=== PATIENT | male | born 1985 | race Caucasian/White ===

== ENCOUNTER 2018-02-05 18:16 | Emergency (ER) | payer OTHER ==
[2018-02-05 18:33] VITALS: RESP 18
--- NOTE | 2018-02-05 18:51 | ED PDOC ---
HPI: Influenza Time Seen by Provider: 02/05/18 18:40 History Per: Patient Exam Limitations: no limitations Additional complaint(s):: 32 year old male presents to the ED with flu-like symptoms onset yesterday. Patient reports of fever, body ache, headache, cough, weakness and mild sore throat. He took 2 tablets of Motrin and Tylenol each every 3 hours without any relief. Otherwise, patient denies rash or abdominal pain. PMD: unknown provider Past Medical History Reviewed: Historical Data, Nursing Documentation, Vital Signs Vital Signs: Last Vital Signs Temp 100.7 F H 02/05/18 18:33 Pulse 97 H 02/05/18 18:33 Resp 18 02/05/18 18:33 BP 113/67 02/05/18 18:33 Pulse Ox 98 02/05/18 18:33 - Medical History PMH: No Chronic Diseases - Family History Family History: States: Unknown Family Hx - Home Medications Home Medications: Ambulatory Orders Medication Instructions Recorded Acetaminophen [Acetaminophen Extra 2 tab PO Q6 PRN #24 tablet 02/05/18 Strength] Ibuprofen [Motrin Tab] 800 mg PO Q8 PRN #21 tab 02/05/18 Oseltamivir Cap [Tamiflu] 75 mg PO BID #9 cap 02/05/18 - Allergies Allergies/Adverse Reactions: Allergies Allergy/AdvReac Type Severity Reaction Status Date / Time No Known Allergies Allergy Verified 02/05/18 18:50 Review of Systems ROS Statement: Except As Marked, All Systems Reviewed And Found Negative Constitutional: Positive for: Fever, Weakness, Other (body ache) ENT: Positive for: Throat Pain (mild) Respiratory: Positive for: Cough Neurological: Positive for: Headache Physical Exam - Reviewed Nursing Documentation Reviewed: Yes Vital Signs Reviewed: Yes - Physical Exam Appears: Positive for: Non-toxic, No Acute Distress Head Exam: Positive for: ATRAUMATIC, NORMAL INSPECTION, NORMOCEPHALIC Skin: Positive for: Normal Color, Warm, Dry Eye Exam: Positive for: Other (mild conjunctivitis to bilateral eyes) Neurologic/Psych: Positive for: Alert, Oriented (x3). Negative for: Motor/Sensory Deficits Medical Decision Making Medical Decision Making: Time: 1843 Initial plan: Tamiflu 75mg Acetaminophen 975mg Influenza A B Rapid strep Reevaluation ------- Scribe Attestation: Documented by Juan Lopez, acting as a scribe for Cal Rossa PA-C. Provider Scribe Attestation: All medical record entries made by the Scribe were at my direction and personally dictated by me. I have reviewed the chart and agree that the record accurately reflects my personal performance of the history, physical exam, medical decision making, and the department course for this patient. I have also personally directed, reviewed, and agree with the discharge instructions and disposition. - ECG O2 Sat by Pulse Oximetry: 98 (RA) Pulse Ox Interpretation: Normal - Progress ED Course And Treament: Patient refused fluids/rapid strep and flu test Tamiflu 75 mg x 1 dose Acetaminophen 975mg x 1 dose Toradol 30 mg IM x 1 dose Disposition - Clinical Impression Clinical Impression: Influenza-like symptoms - Patient ED Disposition Is Patient to be Admitted: No - Disposition Disposition: Routine/Home Disposition Time: 19:24 Condition: FAIR Prescriptions: Acetaminophen [Acetaminophen Extra Strength] 2 tab PO Q6 PRN #24 tablet PRN Reason: Fever >100.4 F Ibuprofen [Motrin Tab] 800 mg PO Q8 PRN #21 tab PRN Reason: Fever >100.4 F Oseltamivir Cap [Tamiflu] 75 mg PO BID #9 cap Instructions: Flu, Adult (DC) Forms: [facility] ED School/Work Excuse
[2018-02-05 20:05] VITALS: BP 120/78; PULSE 89; TEMP 100.2; O2SAT 100
== END 2018-02-05 20:04 | disposition home or self-care (01) ==
LOC: H.ER 18:16
DX: J11.1 Influenza due to unidentified influenza virus with other respiratory manifestations (principal)
CPT/HCPCS: 96372; 99283; J1885